=== PATIENT | female | born 1950 | race Caucasian/White ===

== ENCOUNTER 2018-09-06 12:51 | Observation (INO) | payer MEDICARE, OTHER ==
[2018-09-01 11:02] LABS: BASOPHILS % (AUTO) 0.4 % (0-1); EOSINOPHILS # (AUTO) 0.1 X10'3 (0-0.9); LYMPHOCYTES # (AUTO) 1.6 X10'3 (1.1-4.8); LYMPHOCYTES % (AUTO) 21.2 % (21-51); MEAN CORPUSCULAR HEMOGLOBIN 27.8 PG (27.0-31.0); MEAN CORPUSCULAR HGB CONC 34.4 % (33.0-36.5); MEAN CORPUSCULAR VOLUME 80.8 FL (78-98); MEAN PLATELET VOLUME 6.5 FL (7.4-10.4); MONOCYTES # (AUTO) 0.7 X10'3 (0-0.9); MONOCYTES % (AUTO) 8.8 % (2-12); NEUTROPHILS # (AUTO) 5.3 X10'3 (1.8-7.7); NEUTROPHILS % (AUTO) 68.6 % (42-75); PRE OP HEMATOCRIT 42.3 % (35.0-45.0); PRE OP HEMOGLOBIN 14.5 g/dL (12.0-16.0); PRE OP PLATELET COUNT 457 X10'3 (140-440); RED BLOOD COUNT 5.23 X10'6 (4.20-5.60); RED CELL DISTRIBUTION WIDTH 13.2 % (11.5-14.5)
[2018-09-01 11:35] LABS: PRE OP INR 0.9 INR; PRE OP PROTIME 9.8 SECONDS (9.0-12.0)
[2018-09-01 11:36] LABS: ALBUMIN 3.8 G/DL (3.4-5.0); ALBUMIN/GLOBULIN RATIO 1.2 (1.1-1.5); ALKALINE PHOSPHATASE 86 IU/L (46-116); BLOOD UREA NITROGEN 11 MG/DL (7-18); CALCIUM 8.6 MG/DL (8.5-10.1); CHLORIDE 96 MMOL/L (99-107); CREATININE 0.58 MG/DL (0.40-0.90); PRE OP ALT 27 U/L (30-65); PRE OP ANION GAP 7 (8-16); PRE OP AST 16 U/L (10-37); PRE OP BILIRUB, TOTAL 0.5 MG/DL (0.0-1.0); PRE OP GLUCOSE 103 MG/DL (70-104); PRE OP POTASSIUM 3.4 MMOL/L (3.4-5.1); PRE OP SODIUM 134 MMOL/L (135-145); TOTAL CARBON DIOXIDE 31.3 MMOL/L (24-32); eGFR > 90 ML/MIN
[~2018-09-06] VITALS: Ht 154.9 cm; Wt 72.0 kg
[2018-09-06] VITALS (14 sets, daily range): BP systolic 144–183; BP diastolic 59–89
[~2018-09-06 12:51] MED LIST: ESCI10TA54 PO; HYDR25TA4 PO; IRBE150T27 PO; MONT10TA24 PO; ZOLP10TA5 PO; albuterol 2.5 MG/3 ML nebule NEB ONE; cefazolin/dext.iso 2gm/100 ML IV ONE; famotidine 20mg tablet PO ONE; oxyCODONE SR 10mg (sust. release) tab PO ONE; ringers solution, lacted 1,000 ML IV SCH
[2018-09-06] MEDS ORDERED: epiNEPHrine 1 mg/ml 30ml MDV ONE (18:05)
[2018-09-06] MEDS ORDERED: ROPIVAcaine 0.5% (5mg/ml) 30ml vial ONE ×2 (18:05→20:02)
[2018-09-06] MEDS ORDERED: fentaNYL/PF 50MCG/1 ML 2ML syringe ONE (18:44)
[2018-09-06] MEDS ORDERED: midazolam 2 mg/2 ml injection ONE (19:00)
[2018-09-06] MEDS ORDERED: ondansetron/PF 4mg/2ml inj ONE (20:01)
[2018-09-06] MEDS ORDERED: propofol inj 20 ML IV ONE (20:01)
[2018-09-06] MEDS ORDERED: dexamethasone sod phosphate 4mg/ml inj. ONE (20:01)
[2018-09-06] MEDS ORDERED: LIDOcaine 1%/PF 5ML 10 MG/ML VIAL ONE (20:01)
[2018-09-06] MEDS ORDERED: ringers solution, lacted 1,000 ML IV SCH (20:08)
[2018-09-06] MEDS ORDERED: ondansetron/PF 4mg/2ml inj IV PRN ×2 (20:10→20:50)
[2018-09-06] MEDS ORDERED: morphine 4 MG/ML inj SYRINge IV PRN (20:10)
[2018-09-06] MEDS ORDERED: HYDROmorphone inj. 0.5 MG/0.5 ML DISP.SYRIN IV PRN (20:10)
[2018-09-06] MEDS ORDERED: zolpidem 5mg tablet PO PRN (20:35)
[2018-09-06] MEDS ORDERED: acetaminophen 325mg tablet PO PRN (20:50)
[2018-09-06] MEDS ORDERED: traMADol 50MG tablet PO PRN (20:50)
[2018-09-06] MEDS ORDERED: diphenhydrAMINE 25mg capsule PO PRN (21:20)
[2018-09-06] MEDS ORDERED: non-formulary drug (Zolpidem Tartrate* (Ambien*) 1 TAB) PO PRN (21:35)
[2018-09-07] VITALS: BP 141/58
[2018-09-07 01:00] VITALS: BP 139/73
[2018-09-07 02:00] VITALS: BP 147/66
[2018-09-07 05:00] VITALS: BP 148/65
[2018-09-07 07:26] VITALS: BP 146/63
[2018-09-07] MEDS ORDERED: HYDROchlorothiazide 25mg tablet PO SCH ×2 (08:00)
[2018-09-07] MEDS ORDERED: montelukast 10mg tablet PO SCH ×2 (08:00)
[2018-09-07] MEDS ORDERED: citalopram 20mg tablet PO SCH (08:00)
[2018-09-07] MEDS ORDERED: non-formulary drug (Irbesartan 1 TAB) PO SCH (08:00)
[2018-09-07] MEDS ORDERED: IRBESARTAN 150 MG PO SCH (08:00)
[2018-09-07] MEDS ORDERED: losartan 50mg tablet PO SCH (08:00)
[2018-09-07 10:00] VITALS: BP 161/91
== END 2018-09-07 10:05 | disposition home or self-care (01) ==
LOC: PAS 12:51 → ORTHO 4S 20:47
PROVIDERS: ADMIT Orthopaedic Surgery; ATTEND Orthopaedic Surgery
DX: M75.121 Complete rotator cuff tear or rupture of right shoulder, not specified as traumatic (principal); M19.011 Primary osteoarthritis, right shoulder; I25.10 Atherosclerotic heart disease of native coronary artery without angina pectoris; F41.9 Anxiety disorder, unspecified; F32.9 Major depressive disorder, single episode, unspecified; M25.811 Other specified joint disorders, right shoulder; I10 Essential (primary) hypertension; J40 Bronchitis, not specified as acute or chronic
CPT/HCPCS: 29824; 29826; 29827; 36415; 80053; 85025; 85610; 85730; 96374; A4565; A6258; C1713; G0378; J0171; J0690; J1100; J2001; J2250; J2405; J2704; J2795; J3010; J7030; J7120; A7000